=== PATIENT | female | born 1990 | race Hispanic/Latino ===

== ENCOUNTER 2020-12-28 13:50 | Outpatient (CLI) | payer BC | END 2020-12-28 13:51 | disposition home or self-care (01) | LOC: BICULT 13:50 | PROVIDERS: ATTEND Family Medicine | DX: O09.892 Supervision of other high risk pregnancies, second trimester (principal); O44.22 Partial placenta previa NOS or without hemorrhage, second trimester; Z3A.19 19 weeks gestation of pregnancy | CPT/HCPCS: 76805 ==

== ENCOUNTER 2023-05-30 12:07 | Outpatient (CLI) | payer OTHER | END 2023-05-30 12:08 | disposition home or self-care (01) | LOC: BICULT 12:07 | PROVIDERS: ATTEND Family Medicine | DX: Z34.82 Encounter for supervision of other normal pregnancy, second trimester (principal); Z3A.20 20 weeks gestation of pregnancy | CPT/HCPCS: 76805 ==